=== PATIENT | male | born 1955 | race Caucasian/White ===

== ENCOUNTER 2017-08-18 08:20 | Emergency (ER) | payer OTHER, MEDICAID ==
[2017-08-18] MEDS: KETOROLAC 30 MG INJ IM (09:08)
[2017-08-18] MEDS: HYDROCODONE/APAP (5/325) TAB PO (11:00)
== END 2017-08-18 11:40 | disposition home or self-care (01) ==
LOC: FTE 08:20
DX: M79.601 Pain in right arm (principal)
CPT/HCPCS: 73030; 73030-RT; 93005; 93971; 96372; 99285-25